=== PATIENT | female | born 1995 | race Caucasian/White ===

== ENCOUNTER 2018-06-21 07:30 | Inpatient (IN) | payer BC ==
[2018-06-21] MEDS ORDERED: PROMETHAZINE HCL 25 MG/1 ML VIAL IVPB ONE (08:08)
[2018-06-21] MEDS ORDERED: BUTORPHANOL TARTRATE 1 MG/ML VIAL IVPB ONE (08:08)
[2018-06-21] MEDS ORDERED: OXYTOCIN 30 UNITS in 0.9% NS 30 UNIT/500 ML INFUS.BAG IVPB SCH (08:15)
--- NOTE | 2018-06-21 08:24 | HP ---
Past Medical History - Primary Care Physician PCP:: Onelia Otto - Admission Chief Complaint: 23yo P0 @ 40.1 wks with irregular contructions, no VB, no LOF, + FM for augmentation of labor History of Present Illness: 1. 2016 Bariatric surgery - could not handle GCT 2. Traveled to [place] first trimester, reports no URI or mosquito bites on her trip 3. Fibroid fundal 4x3x2.5 4. Parvo NI 5. GBS positive for prophylaxis 6. Flu and Tdap immunizations given History Source: Patient, Medical Record Limitations to Obtaining History: No Limitations - Past Medical History ...: 1 ...EDC by Manuel: 06/20/18 - Past Surgical History Past Surgical History: Yes: Bariatric Surgery (2015 - Sleeve) Hx Myomectomy: No Hx Transabdominal Cerclage: No - Smoking History Have you smoked in the past 12 months: No - Alcohol/Substance Use Hx Alcohol Use: No History of Substance Use: reports: None - Social History Usual Living Arrangement: Yes: With Spouse Home Medications - Allergies Allergies/Adverse Reactions: Allergies Allergy/AdvReac Type Severity Reaction Status Date / Time No Known Allergies Allergy Verified 06/21/18 08:03 - Home Medications Home Medications: Ambulatory Orders Pnv No.95/Ferrous Fum/Folic AC [ Vitamin Tablet] 1 each PO DAILY Review of Systems - Review of Systems Constitutional: reports: No Symptoms Eyes: reports: No Symptoms HENT: reports: No Symptoms Neck: reports: No Symptoms Cardiovascular: reports: No Symptoms Respiratory: reports: No Symptoms Gastrointestinal: reports: No Symptoms Genitourinary: reports: No Symptoms Breasts: reports: No Symptoms Reported Musculoskeletal: reports: No Symptoms Integumentary: reports: No Symptoms Neurological: reports: No Symptoms Endocrine: reports: No Symptoms Hematology/Lymphatic: reports: No Symptoms Psychiatric: reports: No Symptoms Pain Intensity: 0 Physical Exam - Maternity Constitutional: Yes: Well Nourished, No Distress, Calm Eyes: Yes: WNL HENT: Yes: WNL, Atraumatic, Normocephalic Neck: Yes: WNL, Supple, Trachea Midline Cardiovascular: Yes: WNL, Regular Rate and Rhythm Lungs: Clear to auscultation Breast(s): Yes: WNL - Abdominal Exam/OB Fundal Height: 39 Number of Fetuses: Single Presentation: Vertex Contractions: Yes Regularity: Irregular Intensity: Mild Monitor Mode: External Heart Rate (range): 140 Heart Rate Location: Midline Category: I Accelerations: Uniform Decelerations: None - Vaginal Exam/OB Vaginal Bleediing: No Speculum Exam: No Dilatation (cm): 2 Effacement (%): 50 Amniotic Membrane Status: Intact Presentation: Vertex/Position - Physical Exam Musculoskeletal: Yes: WNL Extremities: Yes: WNL Edema: No Integumentary: Yes: WNL ...Motor Strength: WNL Psychiatric: Yes: WNL, Alert, Oriented - Labs Lab Results: Opos/RI/RPR-nr/HIV - neg/GBS pos Assessment/Plan 23yo P0 @ 40.1wks admitted for labor induction. Fetus with Category I tracing and requires no intervention. Patient is not in labor and has favorable cervix. We discussed the treatment options including expectant management awaiting spontaneous labor , Cervidil vs pitocin for labor induction. We discussed the risks and benefits of each option. The patient prefers to proceed with pitocin and monitor labor progress. I explained the risks of failed induction, tacysystole, distress , shoulder dystocia, and/or maternal trauma, hemorrhage, need for section, etc. The pt verbalized her understanding and requested to proceed.
[2018-06-21 08:26] VITALS: BMI 31.9
[2018-06-21] MEDS ORDERED: AMPICILLIN - 2 GM in SODIUM CHLORIDE 100 ML IVPB ONE (08:30)
[2018-06-21] MEDS: DEXTROSE 5%-LACTATED RINGERS 1,000 ML IV SCH ×2 (08:30→15:23)
[2018-06-21] MEDS ORDERED: OXYTOCIN 30 UNITS in 0.9% NS 30 UNIT/500 ML INFUS.BAG IVPB ONE (08:50)
[2018-06-21] MEDS ORDERED: AMPICILLIN SODIUM 2 GM VIAL ONE (08:50)
[2018-06-21 09:21] LABS: BASO % 0.5 % (0-2.0); EOS % 0.6 % (0-4.5); HEMATOCRIT 30.6 % (32.4-45.2); HEMOGLOBIN 10.6 GM/dL (10.7-15.3); LYMPH % 24.3 % (8-40); MCH 30.7 pg (25.7-33.7); MCHC 34.6 g/dl (32.0-36.0); MEAN CELL VOLUME 88.9 fl (80-96); MEAN PLT VOLUME 8.2 fl (7.5-11.1); MONO % 9.6 % (3.8-10.2); PLATELET COUNT 260 K/MM3 (134-434); RBC 3.44 M/mm3 (3.60-5.2); RDW 12.4 % (11.6-15.6); WHITE BLOOD COUNT 6.3 K/mm3 (4.0-10.0)
[2018-06-21 09:33] LABS: INR 0.9 (0.83-1.09); PROTHROMBIN TIME (PATIENT) 10.6 SEC (9.7-13.0)
[2018-06-21 09:36] LABS: ACTIVATED PTT 24.7 SECONDS (25.2-36.5)
[2018-06-21 09:43] LABS: ANION GAP 7 MMOL/L (8-16); BLOOD UREA NITROGEN 8 mg/dL (7-18); CALCIUM 8.5 mg/dL (8.5-10.1); CHLORIDE 106 mmol/L (98-107); CO2 26 mmol/L (21-32); CREATININE 0.5 mg/dL (0.55-1.3); GLUCOSE,RANDOM 81 mg/dL (74-106); POTASSIUM 3.8 mmol/L (3.5-5.1); SODIUM 139 mmol/L (136-145)
[2018-06-21] MEDS ORDERED: AMPICILLIN SODIUM 1 GM VIAL ONE ×3 (12:30→21:17)
[2018-06-21] MEDS: AMPICILLIN - 1 GM in SODIUM CHLORIDE 100 ML IVPB SCH ×3 (13:15→21:15)
[2018-06-21] MEDS: MISOPROSTOL 100 MCG TABLET PV SCH ×2 (20:50→22:30)
--- NOTE | 2018-06-21 21:02 | PN ---
Progress Note, Labor Vaginal Exam #1 Labor Exam Date: 06/21/18 Labor Exam Time: 21:00 Heart Rate (range): 140 Category 1 Dilatation: 2-3 Effacement (%): 60% Amniotic Membrane Status: Intact Presentation: Vertex/Position Station: -3 Remarks: Minimal response to Pitocin Cervix borderline favorable Cytotec 25mcg placed vaginaly
[2018-06-22] MEDS ORDERED: AMPICILLIN SODIUM 1 GM VIAL ONE ×4 (01:10→13:47)
[2018-06-22] MEDS: AMPICILLIN - 1 GM in SODIUM CHLORIDE 100 ML IVPB SCH ×5 (01:15→18:34)
[2018-06-22] MEDS ORDERED: OXYTOCIN 30 UNITS in 0.9% NS 30 UNIT/500 ML INFUS.BAG IVPB SCH (04:45)
[2018-06-22] MEDS ORDERED: OXYTOCIN 30 UNITS in 0.9% NS 30 UNIT/500 ML INFUS.BAG IVPB ONE (05:03)
[2018-06-22] MEDS: MISOPROSTOL 100 MCG TABLET PV SCH (05:26)
[2018-06-22] MEDS: DEXTROSE 5%-LACTATED RINGERS 1,000 ML IV SCH (08:00)
--- NOTE | 2018-06-22 09:12 | PN ---
Progress Note, Labor Vaginal Exam #2 Labor Exam Date: 06/22/18 Labor Exam Time: 09:00 Heart Rate (range): 130 Category 1 Dilatation: 4 Effacement (%): 75 Amniotic Membrane Status: Ruptured Presentation: Vertex/Position Station: -3 Remarks: Given option of stopping labor induction or further augmentation via ROM increase risk of Chorioamnionitis and c/section discussed, patient desires to proceed with ROM clear fluid upon ROM
[2018-06-22] MEDS ORDERED: PROMETHAZINE HCL 25 MG/1 ML VIAL ONE (11:26)
[2018-06-22] MEDS ORDERED: BUTORPHANOL TARTRATE 1 MG/ML VIAL ONE ×2 (11:26)
--- NOTE | 2018-06-22 12:31 | PN ---
Progress Note, Labor Vaginal Exam #3 Labor Exam Date: 06/22/18 Labor Exam Time: 12:00 Heart Rate (range): 125, category 2 , 3 varrible decels, excellent radha Dilatation: 4-5cm Effacement (%): 85% Amniotic Membrane Status: Ruptured Presentation: Vertex/Position Station: -3 Remarks: EFW 8lb [place] more uncomfortable received Stadol was noted to have variable decels O2 by facemask IVF, Position change FHR fully recovered continue monitoring progress of labor
[2018-06-22] MEDS ORDERED: LIDOCAINE HCL 1% PRESERVATIVE FREE - 30ML VIAL ONE (14:39)
[2018-06-22] MEDS ORDERED: OXYTOCIN 20 UNITS in 0.9% NS 20 UNIT/1,000 ML INFUS.BAG IV ONE (14:39)
--- NOTE | 2018-06-22 15:29 | PN ---
Delivery - Delivery Vaginal Delivery: No Problems Type of Anesthesia: General Episiotomy/Laceration: None EBL (cc): 350 Delivery, Single - Stages of Labor Date 1st Stage Initiatied: 06/22/18 Time 1st Stage Initiated: 10:00 Date 2nd Stage Initiated: 06/22/18 Time 2nd Stage Initiated: 14:35 Date of Delivery: 06/22/18 Time of Delivery: 15:08 Date Placenta Delivered: 06/22/18 Time Placenta Delivered: 15:10 Placenta: Yes: Spontaneous - Condition of Infant Financial Coordinator/Laborer General Present: No Gender: Female Position: Left, OA - 1 Minute Total Score: 8 5 Minutes Total Score: 9 - Feeding Plan Initial Plan: Exclusive throughout hospitalization Remarks - Remarks Remarks: Tight cord around the neck x 1 clamped and cut uncomplicated delivery of shoulders small bl labial tears each repaired with 2-0 chromic figure 8s
[2018-06-22] MEDS ORDERED: METHYLERGONOVINE MALEATE 0.2 MG/1 ML AMP IM PRN (15:30)
[2018-06-22] MEDS ORDERED: BENZOCAINE 28 GM HEMORRHOIDAL OINTMENT TP PRN (15:30)
[2018-06-22] MEDS ORDERED: WITCH HAZEL 50% (TUCKS) 40 PAD/JAR PAD TP PRN (15:30)
[2018-06-22] MEDS ORDERED: BISACODYL 10 MG SUPP.RECT RC PRN (15:30)
[2018-06-22] MEDS ORDERED: D5W-LR W/ 20 UNITS OXYTOCIN 20 UNIT/1,000 ML INFUS.BAG IV SCH (15:30)
[2018-06-22] MEDS ORDERED: BENZOCAINE 20% 57 GM BOTTLE TP PRN (15:30)
[2018-06-22] MEDS ORDERED: IBUPROFEN 600 MG TABLET (FP) PO PRN (15:30)
[2018-06-22] MEDS ORDERED: ACETAMINOPHEN 325 MG TABLET (FP) PO PRN (15:30)
[2018-06-22 15:56] LABS: ARTERIAL BLD GAS O2 SATURATION 40.5 % (90-98.9); ARTERIAL BLOOD GAS PCO2 56.3 mmHg (35-45); ARTERIAL BLOOD GAS PO2 23.9 mmHg (80-100); ARTERIAL BLOOD GAS pH 7.25 (7.35-7.45)
[2018-06-22 15:57] LABS: ARTERIAL BLOOD GAS BASE EXCESS -4.1 meq/l (-2-2); VENOUS PH 7.32 (7.32-7.42); VENOUS PO2 41.8 mmHg (28-48)
[2018-06-22] MEDS: FERROUS SO4 325 MG TABLET (FP) PO SCH (22:05)
[2018-06-23 07:50] LABS: BASO % 0.2 % (0-2.0); EOS % 0.4 % (0-4.5); HEMATOCRIT 25.8 % (32.4-45.2); LYMPH % 21.6 % (8-40); MCH 30.5 pg (25.7-33.7); MCHC 34.8 g/dl (32.0-36.0); MEAN CELL VOLUME 87.6 fl (80-96); MEAN PLT VOLUME 8.3 fl (7.5-11.1); MONO % 9.1 % (3.8-10.2); NEUT % 68.7 % (42.8-82.8); PLATELET COUNT 235 K/MM3 (134-434); RBC 2.95 M/mm3 (3.60-5.2); RDW 12.2 % (11.6-15.6); WHITE BLOOD COUNT 11.3 K/mm3 (4.0-10.0)
[2018-06-23] MEDS: FERROUS SO4 325 MG TABLET (FP) PO SCH ×2 (10:33→22:11)
[2018-06-23] MEDS: PRENATAL VITAMINS W/ FOLIC ACID TABLET (FP) PO SCH (10:33)
--- NOTE | 2018-06-23 14:19 | PN ---
Post Progress Note - Subjective Subjective: Patient without acute complaints. Reports tolerating oral intake without nausea or vomiting. Ambulating without dizziness. Denies fevers or chills. Pain well controlled with oral pain medication. Pumping without issue, baby not latching yet. Passing flatus, no BM. Post Day: 1 Type of Delivery: Vital Signs: Vital Signs Temperature 98.6 F 06/23/18 09:52 Pulse Rate 85 06/23/18 09:52 Respiratory Rate 20 06/23/18 09:52 Blood Pressure 121/69 06/23/18 09:52 O2 Sat by Pulse Oximetry (%) Breast Exam: Yes: Soft Uterus: Yes: Fundus Firm Abdomen/GI: Yes: Abdomen soft, Tolerating PO Lochia: Yes: Rubra Lochia, amount: Small Extremities: Yes: Calves non-tender, Edema (trace) Activity: Ambulating - Labs Labs: CBC WBC 11.3 K/mm3 (4.0-10.0) H 06/23/18 06:30 RBC 2.95 M/mm3 (3.60-5.2) L 06/23/18 06:30 Hgb 9.0 GM/dL (10.7-15.3) L 06/23/18 06:30 Hct 25.8 % (32.4-45.2) L D 06/23/18 06:30 MCV 87.6 fl (80-96) 06/23/18 06:30 MCH 30.5 pg (25.7-33.7) 06/23/18 06:30 MCHC 34.8 g/dl (32.0-36.0) 06/23/18 06:30 RDW 12.2 % (11.6-15.6) 06/23/18 06:30 Plt Count 235 K/MM3 (134-434) 06/23/18 06:30 MPV 8.3 fl (7.5-11.1) 06/23/18 06:30 Absolute Neuts (auto) 7.7 K/mm3 (1.5-8.0) 06/23/18 06:30 Neutrophils % 68.7 % (42.8-82.8) 06/23/18 06:30 Lymphocytes % 21.6 % (8-40) 06/23/18 06:30 Monocytes % 9.1 % (3.8-10.2) 06/23/18 06:30 Eosinophils % 0.4 % (0-4.5) 06/23/18 06:30 Basophils % 0.2 % (0-2.0) 06/23/18 06:30 Nucleated RBC % 0 % (0-0) 06/23/18 06:30 Assessment/Plan 23yo P1 s/p , doing well stable, afebrile. Asymptomatic for anemia. care instructions reviewed. Continue routine care. Ambulation encouraged Discharge instruction reviewed.
--- NOTE | 2018-06-23 14:22 | DS ---
Physical Exam-[employer] Vital Signs: Vital Signs Temperature 98.6 F 06/23/18 09:52 Pulse Rate 85 06/23/18 09:52 Respiratory Rate 20 06/23/18 09:52 Blood Pressure 121/69 06/23/18 09:52 O2 Sat by Pulse Oximetry (%) Constitutional: Yes: Well Nourished, No Distress, Calm Eyes: Yes: WNL, Conjunctiva Clear HENT: Yes: WNL, Atraumatic, Normocephalic Neck: Yes: WNL, Supple, Trachea Midline Cardiovascular: Yes: WNL, Regular Rate and Rhythm Respiratory: Yes: WNL, Regular, CTA Bilaterally Gastrointestinal: Yes: WNL, Normal Bowel Sounds, Soft ...Rectal Exam: Yes: Deferred Renal/: Yes: WNL ....Post : Yes: Uterus firm, Uterus non-tender, Slight lochia rubra Breast(s): Yes: WNL Musculoskeletal: Yes: WNL Extremities: Yes: WNL Edema: Yes Edema: LLE: Trace, RLE: Trace Integumentary: Yes: WNL Neurological: Yes: WNL, Alert, Oriented ...Motor Strength: WNL Psychiatric: Yes: WNL, Alert, Oriented Labs: CBC, BMP 06/23/18 06:30 06/21/18 08:50 Delivery - Delivery Vaginal Delivery: No Problems Type of Anesthesia: Local Episiotomy/Laceration: Vaginal Extension/lac, 1st degree EBL (cc): 350 Delivery, Single - Stages of Labor Date 1st Stage Initiatied: 06/22/18 Time 1st Stage Initiated: 10:00 Date 2nd Stage Initiated: 06/22/18 Time 2nd Stage Initiated: 14:35 Date of Delivery: 06/22/18 Time of Delivery: 15:08 Time Placenta Delivered: 15:10 Placenta: Yes: Spontaneous - Condition of Infant Senior Software Engineer Analytics/Veterinary Physiologist Present: No Infant Gender: Female Weight: 3.175 kg Position: Left, OA Total Hours ROM (Hrs/Mins): 6 hours 10 minutes - 1 Minute Total Score: 9 5 Minutes Total Score: 8 - Feeding Plan Initial Plan: Exclusive throughout hospitalization Discharge Summary Reason For Visit: INDUCTION OF LABOR Post term Procedures: Principal: Other Procedures: Labor induction Hospital Course: Normal recovery, anemia Condition: Good - Instructions Diet, Activity, Other Instructions: Physical activity Resume your normal everyday activity as tolerated no heavy lifting or exercise until seen by your surgeon. You may walk unlimited niharika of and climb stairs. You may resume driving the car when you feel safe and comfortable behind the wheel. No sexual activity as instructed. Wound care If you have a bandage, leave it on, and keep dry for 48-72 hours. After that time discard the outer bandage. If they are tapes on the skin under the out of bandage leave them in place. They will peel off in the next 7 to 10 days. Do Not Peel them off. You may shower the day after surgery. If there are tapes present on the skin, you may shower over them. Diet There are no dietary restrictions. Eat healthy, high-fiber foods. Drink 6 to 8 glasses of liquid each day. This will assist in keeping your bowels are regular. Pain management You may take Tylenol or acetaminophen or Ibuprofen (for example, Motrin, Advil etc.) from my pain prescription medication is ordered should be taken as prescribed for moderate to severe pain. Call MD for any of the following: Severe pain not relieved by medication Fever of 101 or higher Excessive bleeding or drainage on dressing Inability to urinate Referrals: Onelia Otto MD [Staff Physician] - Disposition: HOME - Home Medications Comprehensive Discharge Medication List: Ambulatory Orders Pnv No.95/Ferrous Fum/Folic AC [ Vitamin Tablet] 1 each PO DAILY
[2018-06-23] MEDS ORDERED: SENNOSIDES/DOCUSATE COMBO (SENNA PLUS) TABLET (UD) PO PRN (22:00)
--- NOTE | 2018-06-24 06:30 | PN ---
Post Progress Note - Subjective Subjective: Patient without acute complaints. Reports tolerating oral intake without nausea or vomiting. Ambulating without dizziness. Denies fevers or chills. Pain well controlled with oral pain medication. without difficulty. Passing flatus. Post Day: 2 Type of Delivery: Vital Signs: Vital Signs Temperature 98.0 F 06/23/18 20:30 Pulse Rate 84 06/23/18 20:30 Respiratory Rate 20 06/23/18 20:30 Blood Pressure 103/59 L 06/23/18 20:30 O2 Sat by Pulse Oximetry (%) Uterus: Yes: Fundus Firm, Fundus below umbilicus Abdomen/GI: Yes: Abdomen soft, Passing flatus, Tolerating PO. No: Abdominal Distention, Tender Lochia: Yes: Serosa Lochia, amount: Small Extremities: Yes: Calves non-tender. No: Edema Activity: Ambulating - Labs Labs: CBC WBC 11.3 K/mm3 (4.0-10.0) H 06/23/18 06:30 RBC 2.95 M/mm3 (3.60-5.2) L 06/23/18 06:30 Hgb 9.0 GM/dL (10.7-15.3) L 06/23/18 06:30 Hct 25.8 % (32.4-45.2) L D 06/23/18 06:30 MCV 87.6 fl (80-96) 06/23/18 06:30 MCH 30.5 pg (25.7-33.7) 06/23/18 06:30 MCHC 34.8 g/dl (32.0-36.0) 06/23/18 06:30 RDW 12.2 % (11.6-15.6) 06/23/18 06:30 Plt Count 235 K/MM3 (134-434) 06/23/18 06:30 MPV 8.3 fl (7.5-11.1) 06/23/18 06:30 Absolute Neuts (auto) 7.7 K/mm3 (1.5-8.0) 06/23/18 06:30 Neutrophils % 68.7 % (42.8-82.8) 06/23/18 06:30 Lymphocytes % 21.6 % (8-40) 06/23/18 06:30 Monocytes % 9.1 % (3.8-10.2) 06/23/18 06:30 Eosinophils % 0.4 % (0-4.5) 06/23/18 06:30 Basophils % 0.2 % (0-2.0) 06/23/18 06:30 Nucleated RBC % 0 % (0-0) 06/23/18 06:30 Assessment/Plan 23 yo PPD # 2 s/p , afebrile, vital signs stable, doing well 1. Patient stable for discharge home today. 2. Patient encouraged to contact MD for: - Severe pain not controlled by oral pain medication - Fevers or chills - Nausea or vomiting, intolerance of oral intake 3. Patient to follow up in office in 4-6 weeks for visit
[2018-06-24] MEDS: PRENATAL VITAMINS W/ FOLIC ACID TABLET (FP) PO SCH (09:15)
[2018-06-24] MEDS: FERROUS SO4 325 MG TABLET (FP) PO SCH (09:15)
[2018-06-24 12:53] VITALS: BP 124/61; PULSE 91; TEMP 97.8
== END 2018-06-24 11:45 | disposition home or self-care (01) | DRG 807 ==
LOC: JLDR 07:30 → J3W 06-22 17:05
PROVIDERS: ADMIT Obstetrics & Gynecology; ATTEND Obstetrics & Gynecology
PROC: 3E0P7VZ Introduction of Hormone into Female Reproductive, Via Natural or Artificial Opening (ICD-10-PCS; 2018-06-21)
PROC: 10E0XZZ Delivery of Products of Conception, External Approach (ICD-10-PCS; principal; 2018-06-22)
PROC: 0HQ9XZZ Repair Perineum Skin, External Approach (ICD-10-PCS; 2018-06-22)
DX: O48.0 Post-term pregnancy (principal); Z37.0 Single live birth; O69.1XX0 Labor and delivery complicated by cord around neck, with compression, not applicable or unspecified; O76 Abnormality in fetal heart rate and rhythm complicating labor and delivery; O70.0 First degree perineal laceration during delivery; O99.824 Streptococcus B carrier state complicating childbirth; O34.13 Maternal care for benign tumor of corpus uteri, third trimester; D25.9 Leiomyoma of uterus, unspecified; O99.843 Bariatric surgery status complicating pregnancy, third trimester; O99.013 Anemia complicating pregnancy, third trimester; D64.9 Anemia, unspecified; Z3A.40 40 weeks gestation of pregnancy
CPT/HCPCS: 36415; 36600; 59409; 71046-TC-FY; 80048; 82803; 85025; 85610; 85730; 86593; 86850; 86900; 86901

== ENCOUNTER 2022-04-15 16:38 | Emergency (ER) | payer BC ==
[2022-04-15 17:13] VITALS: BP 100/56; PULSE 70; RESP 18; TEMP 98.3; BMI 25.2
[2022-04-15] MEDS ORDERED: SODIUM CHLORIDE 0.9% 500 ML INFUS.BAG IV ONE (19:24)
[2022-04-15 20:07] LABS: BASO % 1.3 % (0-2.0); EOS % 1.9 % (0-4.5); HEMOGLOBIN 12.7 GM/dL (10.7-15.3); LYMPH % 30.2 % (8-40); MCH 30.3 pg (25.7-33.7); MCHC 32.5 g/dl (32.0-36.0); MEAN CELL VOLUME 93.1 fl (80-96); MEAN PLT VOLUME 7.8 fl (7.5-11.1); MONO % 7.9 % (3.8-10.2); NEUT % 58.7 % (42.8-82.8); PH,URINE 6.5 (5.0-8.0); PLATELET COUNT 425 10^3/uL (134-434); RBC 4.19 M/mm3 (3.60-5.2); RDW 12.8 % (11.6-15.6); URINE APPEARANCE CLEAR; URINE BILIRUBIN NEGATIVE (NEGATIVE); URINE COLOR YELLOW; URINE GLUCOSE (UA) NEGATIVE (NEGATIVE); URINE KETONE NEGATIVE (NEGATIVE); URINE LEUK ESTERASE NEGATIVE (NEGATIVE); URINE NITRITE NEGATIVE (NEGATIVE); URINE PROTEIN NEGATIVE (NEGATIVE); WHITE BLOOD COUNT 6.5 K/mm3 (4.0-10.0)
[2022-04-15 20:27] LABS: ALBUMIN 3.4 g/dl (3.4-5.0); CALCIUM 9.3 mg/dL (8.5-10.1)
[2022-04-15 20:31] LABS: CREATININE 0.6 mg/dL (0.55-1.3)
[2022-04-15 20:32] LABS: TOT PROT 7.6 g/dl (6.4-8.2)
[2022-04-15 20:33] LABS: BILIRUBIN,TOTAL 0.3 mg/dL (0.2-1)
== END 2022-04-15 23:27 | disposition home or self-care (01) ==
LOC: JER 16:38 → JERFT 16:38
DX: R10.9 Unspecified abdominal pain (principal)
CPT/HCPCS: 36415; 74176-TC; 80053; 81003; 84703; 85025; 87086; 99285-25